=== PATIENT | female | born 1940 | race Caucasian/White ===

== ENCOUNTER 2021-09-11 10:24 | Day surgery (SDC) | payer MEDICARE, OTHER, SELFPAY ==
[2021-09-11] MEDS: Tropicam./Phenyleph. (1/2.5%) 5 ML BTL OS ×3 (10:51→11:04)
[2021-09-11 11:05] VITALS: BP 140/69; PULSE 56; RESP 18; TEMP 36.1; O2SAT 99
--- NOTE | 2021-09-11 11:13 | W.ANESPRE ---
General Info Date of Service Date Performed: 09/11/21 Height: 5 ft 6 in Weight: 117.9 kg Body Mass Index (BMI): 41.9 Surgical Procedure: Operation Date: 09/11/21 13:40 Proposed Procedure Side Surgeon p Cataract Extraction with IOL Implant Left Jesus Galdamez MD Meds Allergies and Home Medications Allergies Allergy/AdvReac Type Severity Reaction Status Date / Time insect venom Allergy Severe Other (See Unverified 09/11/21 11:00 Comment) levalbuterol Allergy Severe Headache Unverified 09/11/21 11:00 colchicine Allergy Intermediate Skin Rash Unverified 09/11/21 11:00 gabapentin Allergy Intermediate Other (See Unverified 09/11/21 11:00 Comment) Sulfa (Sulfonamide Allergy Intermediate Itching Unverified 09/11/21 11:00 Antibiotics) sulfamethoxazole Allergy Intermediate Itching Unverified 09/11/21 11:00 olmesartan Allergy Unknown Unknown Unverified 09/11/21 11:00 insect stings Allergy Severe Other (See Uncoded 09/11/21 11:00 Comment) Home Medication Medication Instructions Recorded acetaminophen 325 mg tablet 650 mg PO BID PRN 09/07/21 allopurinol 300 mg tablet 300 mg PO DAILY 09/07/21 amiodarone 300 mg tablet 300 mg PO DAILY 09/07/21 apixaban 5 mg tablet (Eliquis) 5 mg PO BID 09/07/21 cetirizine 10 mg tablet (Zyrtec) 10 mg PO DAILY PRN 09/07/21 doxycycline hyclate 50 mg tablet 50 mg PO BID 09/07/21 ergocalciferol (vitamin D2) 1,250 1,250 mcg PO QWEEK 09/07/21 mcg (50,000 unit) capsule lisinopril 10 mg tablet 10 mg PO DAILY 09/07/21 metformin 500 mg tablet,extended 500 mg PO BID 09/07/21 release 24 hr metoprolol succinate 50 mg capsule 50 mg PO DAILY 09/07/21 sprinkle, ext. release 24 hr pravastatin 20 mg tablet 20 mg PO DAILY 09/07/21 spironolactone 25 mg tablet 25 mg PO DAILY 09/07/21 Current Visit Medications: Current Medications Generic Name Dose Route Start Last Admin Trade Name Freq PRN Reason Stop Dose Admin Acetaminophen 1,000 mg 09/11/21 06:00 Acetaminophen 500 Mg Tab PO Q4H PRN PRN Miscellaneous Medication 0 ml 09/11/21 06:00 Prednisolone 1%, Moxifloxacin 0.5%, Nepafenac 0.1% 5ml Btl OS DIRECTED LAURO Miscellaneous Medication 0 ml 09/11/21 06:00 09/11/21 11:04 Tropicam./Phenyleph. (1/2.5%) 5 Ml Btl OS 1 drp DIRECTED LAURO Administration Tetracaine HCl 0 ml 09/11/21 06:00 Tetracaine 0.5% 4 Ml Btl OS DIRECTED LAURO PFSH Active Problems Active Problems: Problem Status Onset Code Cortical cataract of left eye H26.9 Nuclear sclerotic cataract of left eye H25.12 Posterior subcapsular age-related cataract of left eye H25.042 Medical History Medical History (Updated 09/11/21 @ 10:58 by Sheree Manzo) Abnormal leg movement Acute severe exacerbation of moderate persistent asthma pt. denies Antinuclear factor positive Atrial fibrillation with rapid ventricular response Benign mammary dysplasia Cervical disc disorder noninflammatory cervical disorder per H&P CKD (chronic kidney disease), stage III Diastolic CHF Dyspnea on exertion Edema Essential hypertension Fatigue Gastritis Gout Gouty arthropathy History of cardioversion 11/27/2019 Hx of fracture of lower leg left Hx of radiation therapy 2017 Hypertensive disorder Hypothyroidism Mixed hyperlipidemia Orthostatic hypotension CARLA (obstructive sleep apnea) PAF (paroxysmal atrial fibrillation) Pain in the coccyx Postmenopausal bleeding Primary malignant neoplasm of endometrium 2017 Right-sided heart failure Rosacea Spinal stenosis Swelling of upper extremity Type 2 diabetes mellitus Urinary incontinence Surgical History Surgical History History of ankle surgery per h&P ankle joint surgery Hx of cardiac catheterization 11/10/2019 Hx of cholecystectomy Tobacco Smoking/Tobacco Use Status: Never Alcohol Alcohol Intake: current Alcohol intake frequency: holidays/special occasions only Substance Use Substance use: Never Substance use type: does not use Vital Signs and Lab Results Vital Signs Most Recent Vital Signs in EMR: Most Recent Vital Signs Temp Pulse Resp BP Pulse Ox 36.1 C L 56 L 18 140/69 99 09/11/21 11:05 09/11/21 11:05 09/11/21 11:05 09/11/21 11:05 09/11/21 11:05 Point of Care Results Point of Care Results: Finger Stick Blood Glucose 100 09/11/21 10:41 Lab Results Blood Type / Crossmatch: No Data to Display Complete Blood Count: No Data to Display Complete Metabolic Panel: No Data to Display Liver Function Panel: No Data to Display Coagulation Panel: No Data to Display Cardiac Panel: No Data to Display Arterial Blood Gas: No Data to Display Venous Blood Gas: No Data to Display Pancreas Panel: No Data to Display Thyroid Panel: No Data to Display Infectious Disease: No Data to Display Blood Cultures: No Data to Display Toxicology Panel: No Data to Display Anesthesia Assessment and Plan Anesthesia History Personal History: No History of Anesthesia Complications Family History: No Family History of Anesthesia Complications Exercise Tolerance Exercise Tolerance: Metabolic Equivalents>4 Pertinent Negatives Pertinent Negatives: No Symptoms of GERD, No Major Cardiovascular Symptoms or Complaints (Angiogram 2020, CHF, cardioversions x 4), No Major Pulmonary Symptoms or Complaints and No History of CVA/TIA Cardiac & Pulmonary Exam Cardiac Exam: Normal S1/S2 Heart Sounds Pulmonary Exam: Clear Bilateral Breath Sounds Implantable Cardiac Device Does patient have a Pacemaker or an ICD?: No Airway Exam Known Difficult Airway: No Mallampati Class: 1 Mouth Opening: Normal (> 3cm) Thyromental Distance: Greater than 3 cm Neck Range of Motion: Full ROM Neck Circumference: Normal Teeth Condition: Normal Dentition ASA Classification ASA Score: ASA 2 Emergency Case?: No NPO Status NPO Status: NPO Clears >2 hours, Solids >8 hours Anesthesia Plan Resuscitation Status: Full Code Anesthesia Technique: MAC Anesthesia Airway Planned: Natural Airway Monitors Used: Standard Monitors
[2021-09-11 11:18] VITALS: BMI 41.9
[2021-09-11] MEDS: Tetracaine 0.5% 4 ML BTL OS (11:42)
[2021-09-11] MEDS: Balanced Salt Soln.-PLUS 500 ML BAG (11:42)
[2021-09-11] MEDS: Duovisc Viscoelastic System EACH 1 EACH (11:43)
[2021-09-11] MEDS: Lidocaine 2% Jelly 6 ML SYR (11:44)
[2021-09-11] MEDS: Povidone-Iodine Ophth 30 ML BTL (11:45)
[2021-09-11 11:51] VITALS: BP 127/65; PULSE 53; RESP 16; TEMP 36.2; O2SAT 98
--- NOTE | 2021-09-11 11:52 | W.ANESPOSTOP ---
Postoperative Evaluation Date, Time and Location Date Performed: 09/11/21 Time Performed: 11:52 Patient Location: Day Surgery Unit Vital Signs Most Recent Imported Vital Signs: Most Recent Vital Signs Temp Pulse Resp BP Pulse Ox 36.1 C L 56 L 18 140/69 99 09/11/21 11:05 09/11/21 11:05 09/11/21 11:05 09/11/21 11:05 09/11/21 11:05 Most Recent Manually Entered Vital Signs: Adult Blood Pressure: 127/65 Heart Rate: 53 Respirations: 12 Oxygen Saturation (%): 98 Temperature (C): 36.3 C Pain Score (0-10 Scale): 0 Pain Score Most Recent Pain Score: Most Recent Pain Score Pain Level 0 09/11/21 11:05 Assessment Mental Status: Awake (Alert & Oriented to Patient Baseline) Airway and Respiratory Function: Patent airway with normal (patient baseline) respiratory exam Cardiovascular Function: Hemodynamically Stable Hydration Status: Adequately Hydrated Nausea & Vomiting: No Nausea or Vomiting Pain: Pt. Denies Any Pain Peripheral Nerve Block: Patient did not receive a nerve block
--- NOTE | 2021-09-11 11:52 | W.PM.DSUDISC ---
Discharge Plan Disposition Patient Disposition: HOME Condition: Good Discharge Details Attending Provider: Jesus Galdamez Primary Care Provider: Bebeto Gaines Home Meds and New Rx's Prescriptions: No Action acetaminophen 325 mg Tablet 650 mg PO BID PRN cetirizine [Zyrtec] 10 mg Tablet 10 mg PO DAILY PRN spironolactone 25 mg Tablet 25 mg PO DAILY lisinopril 10 mg Tablet 10 mg PO DAILY allopurinol 300 mg Tablet 300 mg PO DAILY pravastatin 20 mg Tablet 20 mg PO DAILY ergocalciferol (vitamin D2) 1,250 mcg (50,000 unit) Capsule 1,250 mcg PO QWEEK metformin 500 mg Tablet Extended Release 24 Hr 500 mg PO BID amiodarone 300 mg Tablet 300 mg PO DAILY Eliquis 5 mg Tablet 5 mg PO BID doxycycline hyclate 50 mg Tablet 50 mg PO BID metoprolol succinate 50 mg Capsule,Sprinkle,Er 24hr 50 mg PO DAILY Discharge Instructions Stand Alone Forms: Post-op Topical Cataract, Severino Trent ([facility]) Discharge Orders Discharge Orders: Discharge Order (Routine); Ordered 09/11/21 Ordered By: Jesus Galdamez DS: Diagnosis Discharge Diagnosis (1) Cortical cataract of left eye: Status: Resolved (2) Nuclear sclerotic cataract of left eye: Status: Resolved (3) Posterior subcapsular age-related cataract of left eye: Status: Resolved
[2021-09-11 11:53] VITALS: BP 127/65; PULSE 53; RESP 12; TEMPC 36.3; O2SAT 98
--- NOTE | 2021-09-11 11:53 | ROE_ITS ---
Date of service: 09/11/21 Time of Service: 11:53 Operative Note Operative Note DATE OF PROCEDURE: 09/11/21 PRE-OP DIAGNOSIS: Nuclear/cortical/posterior subcapsular cataract, left eye POST-OP DIAGNOSIS: same PROCEDURE: Cataract extraction using phacoemulsification with intraocular lens implant, left eye SURGEON: Jesus Galdamez ANESTHESIA TYPE: Local By Surgeon and MAC Refer to Anesthesia Record PATHOLOGY: none sent COMPLICATIONS: None Patient was transported to: same day Patient's condition: stable Implants: [employer] / [employer] Tecnis [id number] Indications: Progressive decreased vision due to cataract, left eye Procedure Description: CATARACT SURGERY OPERATIVE REPORT PREOPERATIVE DIAGNOSIS: 1. Nuclear/cortical/posterior subcapsular cataract, left eye POSTOPERATIVE DIAGNOSIS: Same OPERATION: 1. Cataract extraction using phacoemulsification with posterior chamber intraocular lens implant, left eye. IOL: IOL Director Of Nursing/Model: [employer] / PHILOMENA Tecnis [id number] IOL Power: + 22.0 diopters IOL Serial Number: [id number] Optic Diameter: 6.0 mm Haptic/Overall Diameter: 13.0 mm PHACO INFO: Ananth mobile melting gmbhurion Vision System with OZil and Active Fluidics Cumulative Dispersed Energy (CDE): 10.7 seconds SURGEON: Jesus Galdamez MD, JEAN ANESTHESIA: Monitored A [facility] (MAC), with local sub-tenon's anesthetic infiltration COMPLICATIONS: None SPECIMENS: None INDICATIONS FOR PROCEDURE: The patient is a 80-year-old lady with history of diminished visual acuity in her left eye secondary to the development of nuclear/cortical/posterior subcapsular cataract. She is significantly symptomatic that she desires cataract surgery and attempt to improve and maximize her vision. The option of cataract surgery was offered to the patient and she wished to proceed. PROCEDURE: The correct surgical eye was identified and marked as the left eye and the pupil was dilated in the preoperative area using mydriatics and cycloplegics. The dilated pupil size was 6.0 mm. She elected to proceed without oral sedation. The patient was brought to the operating room where cardiopulmonary monitoring was instituted and surgical time-out was performed, confirming the correct operative eye and IOL power. Topical anesthesia was administered and ophthalmic povidone-iodine 5% was instilled into the conjunctival fornices. Lidocaine gel was applied to the cornea and the alma-ocular area was prepped with Betadine 10% solution and draped in the usual sterile fashion for intraocular surgery, including an aperture drape. A Tegaderm transparent film dressing was cut in half and used to cover the lashes and lid margins. Care was taken to sequester the lashes and lid margins under the Tegaderm dressing. A lid speculum was placed between the lids of the operative eye and the Ananth LuxOR Revalia operating microscope was maneuvered into position. Priscilla scissors were then used to make a conjunctival buttonhole approximately 6mm posterior to the limbus in the inferonasal quadrant. Blunt dissection was carried out to expose bare sclera, and a blunt-tipped sub-tenon?s anesthesia cannula was introduced and passed posteriorly along the globe where non- preserved plain lidocaine was injected into posterior sub-Tenon?s space. A sideport knife was used to make a paracentesis port superiorly/superiortemporally. Intraocular phenylephrine/lidocaine was injected int the anterior chamber.. The anterior chamber was filled with viscoelastic. A 2.4mm keratome knife was used to construct a 2-plane near-clear corneal tunnel extending 2.0mm into clear cornea temporally. A flap was raised on the anterior capsule and capsulorhexis forceps were used to complete a continuous curvilinear capsulorhexis of 5.0 mm. Balanced salt solution was then used to perform cortical cleaving hydrodissection and nuclear hydrodelineation until the lens could be freely rotated within the capsular bag. The lens nucleus was then disassembled and removed within the capsular bag and iris plane using phacoemulsification. Residual cortical material was removed using the 45-degree angled silicone I/A tip with 0.3mm port. The posterior capsule was carefully polished to remove as much residual lens epithelial cells as safely possible. The capsular bag was then inflated and the anterior chamber deepened with viscoelastic. The lens implant described above was inserted into the capsular bag using the [employer]OMENA [employer] [place] Injector. A Kuglen hook was used to dial the IOL into position. Residual viscoelastic was then removed first from posterior to the IOL, then from the anterior chamber using the I/A handpiece. The lens implant was noted to center nicely within the capsular bag. The incisions were stromally hydrated, and the anterior chamber was reformed using BSS. Then 0.5cc of moxifloxacin 1.0mg/ml were injected into the capsular bag and anterior chamber. The incisions were checked with a Weck spear and found to be secure. Several drops of ophthalmic povidone-iodine 5% were then applied to the eye followed by two drops of Imprimis combination prednisolone/moxifloxacin/nepafenac solution. The drapes were removed and a clear plastic protective eye shield was placed ov er the eye. The patient was then returned to [facility] in stable condition.
== END 2021-09-11 12:31 | disposition home or self-care (01) ==
PROVIDERS: PCP Family Medicine; Visit Provider Ophthalmology
PROC: (CPT 66984; principal; 2021-09-11 13:30)
DX: H25.042 Posterior subcapsular polar age-related cataract, left eye (principal); I48.91 Unspecified atrial fibrillation; I12.9 Hypertensive chronic kidney disease with stage 1 through stage 4 chronic kidney disease, or unspecified chronic kidney disease; G47.33 Obstructive sleep apnea (adult) (pediatric); E11.22 Type 2 diabetes mellitus with diabetic chronic kidney disease
CPT/HCPCS: 66984; V2632

== ENCOUNTER 2021-09-25 11:00 | Day surgery (SDC) | payer MEDICARE, OTHER, SELFPAY ==
[2021-09-25] MEDS: Tropicam./Phenyleph. (1/2.5%) 5 ML BTL OD ×3 (11:33→11:48)
[2021-09-25 11:34] VITALS: BP 148/89; PULSE 69; RESP 18; TEMP 36.2; O2SAT 97
--- NOTE | 2021-09-25 11:41 | W.ANESPRE ---
General Info Date of Service Date Performed: 09/25/21 Height: 5 ft 6 in Weight: 119 kg Body Mass Index (BMI): 42.3 Surgical Procedure: Operation Date: 09/25/21 14:40 Proposed Procedure Side Surgeon p Cataract Extraction with IOL Implant Right Jesus Galdamez MD Meds Allergies and Home Medications Allergies Allergy/AdvReac Type Severity Reaction Status Date / Time insect venom Allergy Severe swelling Unverified 09/25/21 11:27 at site levalbuterol Allergy Severe Headache Unverified 09/25/21 11:22 colchicine Allergy Intermediate Skin Rash Unverified 09/25/21 11:22 gabapentin Allergy Intermediate hands Unverified 09/25/21 11:27 turned brightred Sulfa (Sulfonamide Allergy Intermediate Itching Unverified 09/25/21 11:22 Antibiotics) sulfamethoxazole Allergy Intermediate Itching Unverified 09/25/21 11:22 olmesartan Allergy Unknown Unknown Unverified 09/25/21 11:22 insect stings Allergy Severe swelling Uncoded 09/25/21 11:28 at site. Home Medication Medication Instructions Recorded acetaminophen 325 mg tablet 650 mg PO BID PRN 09/07/21 allopurinol 300 mg tablet 300 mg PO DAILY 09/07/21 amiodarone 300 mg tablet 300 mg PO DAILY 09/07/21 apixaban 5 mg tablet (Eliquis) 5 mg PO BID 09/07/21 cetirizine 10 mg tablet (Zyrtec) 10 mg PO DAILY PRN 09/07/21 doxycycline hyclate 50 mg tablet 50 mg PO BID PRN 09/07/21 ergocalciferol (vitamin D2) 1,250 1,250 mcg PO QWEEK 09/07/21 mcg (50,000 unit) capsule lisinopril 10 mg tablet 10 mg PO DAILY 09/07/21 metformin 500 mg tablet,extended 500 mg PO BID 09/07/21 release 24 hr metoprolol succinate 50 mg capsule 50 mg PO DAILY 09/07/21 sprinkle, ext. release 24 hr pravastatin 20 mg tablet 20 mg PO DAILY 09/07/21 spironolactone 25 mg tablet 25 mg PO DAILY 09/07/21 Current Visit Medications: Current Medications Generic Name Dose Route Start Last Admin Trade Name Freq PRN Reason Stop Dose Admin Acetaminophen 1,000 mg 09/25/21 06:00 Acetaminophen 500 Mg Tab PO Q4H PRN PRN Miscellaneous Medication 0 ml 09/25/21 06:00 Prednisolone 1%, Moxifloxacin 0.5%, Nepafenac 0.1% 5ml Btl OD DIRECTED LAURO Miscellaneous Medication 0 ml 09/25/21 06:00 09/25/21 11:39 Tropicam./Phenyleph. (1/2.5%) 5 Ml Btl OD 1 drp DIRECTED LAURO Administration Tetracaine HCl 0 ml 09/25/21 06:00 Tetracaine 0.5% 4 Ml Btl OD DIRECTED LAURO PFSH Active Problems Active Problems: Problem Status Onset Code Cortical cataract of left eye H26.9 Nuclear sclerotic cataract of left eye H25.12 Posterior subcapsular age-related cataract of left eye H25.042 Medical History Medical History Abnormal leg movement Acute severe exacerbation of moderate persistent asthma pt. denies Antinuclear factor positive Atrial fibrillation with rapid ventricular response Benign mammary dysplasia Cervical disc disorder noninflammatory cervical disorder per H&P CKD (chronic kidney disease), stage III Diastolic CHF Dyspnea on exertion Edema Essential hypertension Fatigue Gastritis Gout Gouty arthropathy History of cardioversion 11/27/2019 Hx of fracture of lower leg left Hx of radiation therapy 2017 Hypertensive disorder Hypothyroidism Mixed hyperlipidemia Orthostatic hypotension CARLA (obstructive sleep apnea) PAF (paroxysmal atrial fibrillation) Pain in the coccyx Postmenopausal bleeding Primary malignant neoplasm of endometrium 2017 Right-sided heart failure Rosacea Spinal stenosis Swelling of upper extremity Type 2 diabetes mellitus Urinary incontinence Surgical History Surgical History (Updated 09/25/21 @ 11:33 by Sheree Manzo) History of ankle surgery per h&P ankle joint surgery Hx of cardiac catheterization 11/10/2019 Hx of cataract removal with insertion of prosthetic lens Hx of cholecystectomy Tobacco Smoking/Tobacco Use Status: Never Alcohol Alcohol Intake: current Alcohol intake frequency: holidays/special occasions only Substance Use Substance use: Never Substance use type: does not use Vital Signs and Lab Results Vital Signs Most Recent Vital Signs in EMR: Most Recent Vital Signs Temp Pulse Resp BP Pulse Ox 36.2 C L 69 18 148/89 H 97 09/25/21 11:34 09/25/21 11:34 09/25/21 11:34 09/25/21 11:34 09/25/21 11:34 Lab Results Blood Type / Crossmatch: No Data to Display Complete Blood Count: No Data to Display Complete Metabolic Panel: No Data to Display Liver Function Panel: No Data to Display Coagulation Panel: No Data to Display Cardiac Panel: No Data to Display Arterial Blood Gas: No Data to Display Venous Blood Gas: No Data to Display Pancreas Panel: No Data to Display Thyroid Panel: No Data to Display Infectious Disease: No Data to Display Blood Cultures: No Data to Display Toxicology Panel: No Data to Display Anesthesia Assessment and Plan Anesthesia History Personal History: No History of Anesthesia Complications Family History: No Family History of Anesthesia Complications Exercise Tolerance Exercise Tolerance: Metabolic Equivalents>4 Cardiac & Pulmonary Exam Cardiac Exam: Normal S1/S2 Heart Sounds Pulmonary Exam: Clear Bilateral Breath Sounds Implantable Cardiac Device Does patient have a Pacemaker or an ICD?: No Airway Exam Known Difficult Airway: No Mallampati Class: 1 Mouth Opening: Normal (> 3cm) Thyromental Distance: Greater than 3 cm Neck Range of Motion: Full ROM Neck Circumference: Normal Teeth Condition: Normal Dentition ASA Classification ASA Score: ASA 3 Emergency Case?: No NPO Status NPO Status: NPO Clears >2 hours, Solids >8 hours Anesthesia Plan Resuscitation Status: Full Code Anesthesia Technique: MAC Anesthesia Airway Planned: Natural Airway Monitors Used: Standard Monitors
[2021-09-25 11:45] VITALS: BMI 42.3
[2021-09-25] MEDS: Lidocaine 2% Jelly 6 ML SYR (12:17)
[2021-09-25] MEDS: Tetracaine 0.5% 4 ML BTL OD (12:17)
[2021-09-25] MEDS: Povidone-Iodine Ophth 30 ML BTL (12:18)
[2021-09-25] MEDS: Balanced Salt Soln.-PLUS 500 ML BAG (12:25)
[2021-09-25] MEDS: Duovisc Viscoelastic System EACH 1 EACH (12:26)
[2021-09-25 12:45] VITALS: BP 115/58; PULSE 54; RESP 18; TEMP 36.4; O2SAT 99
--- NOTE | 2021-09-25 12:49 | W.PM.DSUDISC ---
Discharge Plan Disposition Patient Disposition: HOME Condition: Good Discharge Details Attending Provider: Jesus Galdamez Primary Care Provider: Bebeto Gaines Home Meds and New Rx's Prescriptions: No Action acetaminophen 325 mg Tablet 650 mg PO BID PRN cetirizine [Zyrtec] 10 mg Tablet 10 mg PO DAILY PRN spironolactone 25 mg Tablet 25 mg PO DAILY lisinopril 10 mg Tablet 10 mg PO DAILY allopurinol 300 mg Tablet 300 mg PO DAILY pravastatin 20 mg Tablet 20 mg PO DAILY ergocalciferol (vitamin D2) 1,250 mcg (50,000 unit) Capsule 1,250 mcg PO QWEEK metformin 500 mg Tablet Extended Release 24 Hr 500 mg PO BID amiodarone 300 mg Tablet 300 mg PO DAILY Eliquis 5 mg Tablet 5 mg PO BID doxycycline hyclate 50 mg Tablet 50 mg PO BID PRN metoprolol succinate 50 mg Capsule,Sprinkle,Er 24hr 50 mg PO DAILY Discharge Instructions Stand Alone Forms: Post-op Topical Cataract, Severino Trent ([facility]) Discharge Orders Discharge Orders: Discharge Order (Routine); Ordered 09/25/21 Ordered By: Jesus Galdamez DS: Diagnosis Discharge Diagnosis (1) Cortical cataract of right eye: Status: Resolved (2) Nuclear sclerotic cataract of right eye: Status: Resolved (3) Posterior subcapsular age-related cataract, right eye: Status: Resolved
--- NOTE | 2021-09-25 12:53 | W.PM.OP ---
Date of service: 09/25/21 Time of Service: 12:53 Operative Note Operative Note DATE OF PROCEDURE: 09/25/21 PRE-OP DIAGNOSIS: Nuclear/cortical/posterior subcapsular cataract, right eye POST-OP DIAGNOSIS: same PROCEDURE: Cataract extraction using phacoemulsification with intraocular lens implant, right eye SURGEON: Jesus Galdamez ANESTHESIA TYPE: Local By Surgeon and MAC Refer to Anesthesia Record ESTIMATED BLOOD LOSS: 0 PATHOLOGY: none sent COMPLICATIONS: None Patient was transported to: same day Patient's condition: stable Implants: [employer]/PHILOMENA Tecnis [id number] Indications: Progressive visual loss due to cataract, right eye Procedure Description: CATARACT SURGERY OPERATIVE REPORT PREOPERATIVE DIAGNOSIS: 1. Nuclear/cortical/posterior subcapsular cataract, right eye POSTOPERATIVE DIAGNOSIS: Same OPERATION: 1. Cataract extraction using phacoemulsification with posterior chamber intraocular lens implant, right eye. 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 She has already undergone cataract surgery in the left eye and is doing well postoperatively. She now presents for cataract surgery in the right eye. PROCEDURE: The correct surgical eye was identified and marked as the right eye and the pupil was dilated in the preoperative area using mydriatics and cycloplegics. The dilated pupil size was 5.0 mm. She elected to proceed without oral sedation. The patient was brought to the operating room where cardiopulmonary monitoring was instituted and surgical time-out was performed, confirming the correct operative eye and IOL power. Topical anesthesia was administered and ophthalmic povidone-iodine 5% was instilled into the conjunctival fornices. Lidocaine gel was applied to the cornea and the alma-ocular area was prepped with Betadine 10% solution and draped in the usual sterile fashion for intraocular surgery, including an aperture drape. A Tegaderm transparent film dressing was cut in half and used to cover the lashes and lid margins. Care was taken to sequester the lashes and lid margins under the Tegaderm dressing. A lid speculum was placed between the lids of the operative eye and the Ananth LuxOR Revalia operating microscope was maneuvered into position. Priscilla scissors were then used to make a conjunctival buttonhole approximately 6mm posterior to the limbus in the inferonasal quadrant. Blunt dissection was carried out to expose bare sclera, and a blunt-tipped sub-tenon?s anesthesia cannula was introduced and passed posteriorly along the globe where non-preserved plain lidocaine was injected into posterior sub-Tenon?s space. A sideport knife was used to make a paracentesis port inferotemporally. Intraocular phenylephrine/lidocaine was injected into the anterior chamber. The anterior chamber was filled with viscoelastic. A 2.6mm keratome knife was used to construct a 2-plane near-clear corneal tunnel extending 2.0mm into clear cornea superiortemporally. A flap was raised on the anterior capsule and capsulorhexis forceps were used to complete a continuous curvilinear capsulorhexis of 5.0 mm. Balanced salt solution was then used to perform cortical cleaving hydrodissection and nuclear hydrodelineation until the lens could be freely rotated within the capsular bag. The lens nucleus was then disassembled and removed within the capsular bag and iris plane using phacoemulsification. Residual cortical material was removed using the I/A handpiece. The posterior capsule was carefully polished to remove as much residual lens epithelial cells as safely possible. The capsular bag was then inflated and the anterior chamber deepened with viscoelastic. The lens implant described above was inserted into the capsular bag using the PHILOMENA [place] Injector. A Kuglen hook was used to dial the IOL into position. Residual viscoelastic was then removed first from posterior to the IOL, then from the anterior chamber using the I/A handpiece. The lens implant was noted to center nicely within the capsular bag. The incisions were stromally hydrated, and the anterior chamber was reformed using BSS. Then 0.5cc of moxifloxacin 1.0mg/ml were injected into the capsular bag and anterior chamber. The incisions were checked with a Weck spear and found to be secure. Several drops of ophthalmic povidone-iodine 5% were then applied to the eye followed by two drops of Imprimis combination prednisolone/moxifloxacin/nepafenac solution. The drapes were removed and a clear plastic protective eye shield was placed over the eye. The patient was then returned to [facility] in stable condition.
--- NOTE | 2021-09-25 13:14 | W.ANESPOSTOP ---
Postoperative Evaluation Date, Time and Location Date Performed: 09/25/21 Time Performed: 12:45 Patient Location: Day Surgery Unit Vital Signs Most Recent Imported Vital Signs: Most Recent Vital Signs Temp Pulse Resp BP Pulse Ox 36.4 C L 54 L 18 115/58 L 99 09/25/21 12:45 09/25/21 12:45 09/25/21 12:45 09/25/21 12:45 09/25/21 12:45 Pain Score Most Recent Pain Score: Most Recent Pain Score Pain Level 0 09/25/21 12:45 Assessment Mental Status: Awake (Alert & Oriented to Patient Baseline) Airway and Respiratory Function: Patent airway with normal (patient baseline) respiratory exam Cardiovascular Function: Hemodynamically Stable Hydration Status: Adequately Hydrated Nausea & Vomiting: No Nausea or Vomiting Pain: Pt. Denies Any Pain Peripheral Nerve Block: Patient did not receive a nerve block
== END 2021-09-25 13:06 | disposition home or self-care (01) ==
PROVIDERS: PCP Family Medicine; Visit Provider Ophthalmology
PROC: (CPT 66984; principal; 2021-09-25 14:30)
DX: H25.041 Posterior subcapsular polar age-related cataract, right eye (principal); I48.91 Unspecified atrial fibrillation; I13.0 Hypertensive heart and chronic kidney disease with heart failure and stage 1 through stage 4 chronic kidney disease, or unspecified chronic kidney disease; I50.30 Unspecified diastolic (congestive) heart failure; N18.30 Chronic kidney disease, stage 3 unspecified; E11.22 Type 2 diabetes mellitus with diabetic chronic kidney disease
CPT/HCPCS: 66984; V2632